=== PATIENT | female | born 1945 | race African-American/Black ===

== ENCOUNTER → 2016-11-28 | Outpatient (CLI) | payer MEDICARE, BC ==
--- NOTE | 2016-11-28 14:05 | RAD ---
Indication chronic shoulder pain. Internally and externally rotated views of the right shoulder as well as a Y view were obtained. There are mild degenerative changes at the AC joint. Significant glenohumeral degenerative changes not seen. No acute bony finding is apparent. IMPRESSION: No acute bony finding
== END | disposition home or self-care (01) ==
LOC: RAD 12:47
PROVIDERS: ATTEND Family Medicine
DX: M19.011 Primary osteoarthritis, right shoulder (principal)
CPT/HCPCS: 73030

== ENCOUNTER → 2018-02-19 | Outpatient (CLI) | payer MEDICARE ==
--- NOTE | 2018-02-19 15:29 | RAD ---
MR of the right shoulder Indication: Right shoulder pain after a fall. Technique: Standard multiplanar sequences are obtained. Findings: Artifact: Mild motion degradation. Acromioclavicular joint: Degenerative, with undersurface osteophytes. Rotator cuff: * Supraspinatus-infraspinatus tendon: Complete rupture of both tendons with severe retraction to the superior labrum measuring about 3.5 cm. * Subscapularis tendon: Partial tear * Muscle bulk: Severe fatty infiltration of the supraspinatus and infraspinatus muscles, less so at the subscapularis muscle * Subacromial subdeltoid bursa: Mild effusion. Fluid: Small glenohumeral effusion. Mild fluid in the subcoracoid bursa. Glenohumeral cartilage: Moderate chondromalacia. Labrum: Tear of the posterosuperior labrum. Biceps tendon: High-grade tear Bones: No lesion or acute fracture. Soft tissue: No acute findings. Impression: 1. Complete rupture of the supraspinatus and infraspinatus tendons, with retraction and severe fatty infiltration. Partial subscapularis tendon tear. 2. Posterosuperior labral tear. 3. High-grade biceps tendon tear. Electronically signed by: Neville Jordan MD (02/19/2018 3:25 PM) [facility]
== END | disposition home or self-care (01) ==
LOC: MRI 10:55
PROVIDERS: ATTEND Family Medicine
DX: S46.811A Strain of other muscles, fascia and tendons at shoulder and upper arm level, right arm, initial encounter (principal); M94.211 Chondromalacia, right shoulder; K76.0 Fatty (change of) liver, not elsewhere classified; W19.XXXA Unspecified fall, initial encounter; Y93.89 Activity, other specified; Y92.89 Other specified places as the place of occurrence of the external cause; Y99.8 Other external cause status
CPT/HCPCS: 73221

== ENCOUNTER → 2018-10-08 | Outpatient (CLI) | payer MEDICARE, BC ==
--- NOTE | 2018-10-08 17:18 | RAD ---
EXAM: Right tibia and fibula, 2 views. HISTORY: Pain. COMPARISON: None. FINDINGS: 2 views the right tibia and fibula are obtained. There is no fracture, dislocation or subluxation. There is no lytic or sclerotic osseous lesion. There is no periosteal reaction. There is medial compartment joint space narrowing and moderate medial and mild lateral compartment spurring of the right knee. There are multiple soft tissue calcifications stranding the knee and within the calf. There is a small plantar spur. There is slight enthesopathy at the Achilles tendon insertion. There is mild midfoot and hindfoot degenerative spurring. IMPRESSION: 1. No acute osseous finding. 2. Moderate medial compartment predominant osteoarthritis of the right knee and mild osteoarthritis involving the right mid and hindfoot. 3. Small plantar spur. Electronically signed by: Nichol Boo MD (10/08/2018 5:15 PM) [facility]
== END | disposition home or self-care (01) ==
LOC: RAD 12:45
PROVIDERS: ATTEND Family Medicine
DX: M19.071 Primary osteoarthritis, right ankle and foot (principal); M17.11 Unilateral primary osteoarthritis, right knee; M77.51 Other enthesopathy of right foot and ankle
CPT/HCPCS: 73590

== ENCOUNTER → 2018-10-28 | Outpatient (CLI) | payer MEDICARE, BC ==
[~2018-10-28] MED LIST: GADOBUTROL 10 MMOL/10 ML VIAL IV ONE
--- NOTE | 2018-10-28 13:01 | RAD ---
MR of the right tibia fibula with and without contrast HISTORY: Generalized pain and swelling at the right tibia and fibula. No specific location of swelling is worse anterolaterally. TECHNIQUE: Pre and postcontrast images are obtained. FINDINGS: There is generalized muscle atrophy. Mild subcutaneous edema fairly generalized. No concerning localized area of edema. No fluid collection is seen. No concerning contrast enhancement. Muscle tissue signal is intact. No bone lesion or acute fracture. No aggressive bone destruction. No periosteal reaction. The knee is barely visualized, demonstrating primary osteoarthritis in a joint effusion. There is a probable medial meniscal tear. Small ossicles or loose bodies are seen in the popliteus recess. Small Nix's cyst. IMPRESSION: 1. No significant findings at the tibiotalar fibula. 2. Limited knee visualization does demonstrate primary osteoarthritis and a probable medial meniscal tear. Electronically signed by: Neville Jordan MD (10/28/2018 12:58 PM) [facility]
== END | disposition home or self-care (01) ==
LOC: MRI 10:24
PROVIDERS: ATTEND Family Medicine
DX: M17.11 Unilateral primary osteoarthritis, right knee (principal); M71.21 Synovial cyst of popliteal space [Baker], right knee; M62.561 Muscle wasting and atrophy, not elsewhere classified, right lower leg
CPT/HCPCS: 73720; A9585

== ENCOUNTER 2019-06-02 10:43 | Emergency (ER) | payer MEDICARE, BC ==
[~2019-06-02] VITALS: Ht 157.5 cm; Wt 102.1 kg
[2019-06-02] MEDS ORDERED: PENI500T PO (11:36)
--- NOTE | 2019-06-02 11:36 | PHYS DOC ---
Past Medical History Past Medical History: High Cholesterol, Hypertension Alcohol Use: None Drug Use: None Adult General Chief Complaint Chief Complaint: ALLERGIC REACTION HPI HPI Patient is a 73 year old AA female accompanied by her , who presents to the ER with complaints of swelling to R lower jaw and R lateral lower lip for the last 2 days. Patient denies any new medications, foods, detergents, or environmental exposures. She denies any shortness of breath, wheezing, tongue swelling, or difficulty swallowing. Patient states she was seen by her dentist last month and denies having any dental caries at that time. Patient does report some right lower dental pain, she denies any ear pain, sore throat, cough, nausea, or vomiting. She currently rates her pain a 4/10 on the pain scale, the pain increases with palpation, there are no alleviating factors. All other ROS is neg unless otherwise noted in HPI. Review of Systems Review of Systems See Above Allergies Allergies Allergies Coded Allergies Type Severity Reaction Last Updated Verified No Known Drug Allergies 10/28/18 No Physical Exam Physical Exam See Above Constitutional: Well developed, well nourished, no acute distress, non-toxic appearance. [] HENT: Normocephalic, atraumatic, bilateral external ears normal, oropharynx moist, no oral exudates, nose normal; R lower facial swelling with edema and erythema of right lower gingiva, right front bottom tooth tender to palpation, no visible abscess. [] Eyes: PERRLA, EOMI, conjunctiva normal, no discharge. [] Neck: Normal range of motion, no tenderness, supple, no stridor. [] Cardiovascular:Heart rate regular rhythm, no murmur [] Lungs & Thorax: Bilateral breath sounds clear to auscultation [] Skin: Warm, dry, no erythema, no rash. [] Extremities: No cyanosis, ROM intact Neurologic: Alert and oriented X 3, no focal deficits noted. [] Psychologic: Affect normal, judgement normal, mood normal. [] Current Patient Data Vital Signs Vital Signs Date Time Temp Pulse Resp B/P (MAP) Pulse Ox O2 Delivery O2 Flow Rate FiO2 06/02/19 11:41 58 183/82 (115) 96 Room Air 06/02/19 11:08 98.3 18 98.3 EKG EKG [] Radiology/Procedures Radiology/Procedures [] Course & Med Decision Making Course & Med Decision Making Pertinent Labs and Imaging studies reviewed. (See chart for details) [] Dragon Disclaimer Dragon Disclaimer This electronic medical record was generated, in whole or in part, using a voice recognition dictation system. Departure Departure Impression: Primary Impression: Infected dental caries Disposition: 01 HOME, SELF-CARE Condition: STABLE Referrals: MARILEE PAL MD (PCP) Patient Instructions: Dental Caries Additional Instructions: Fill the prescription and take as directed. He will take Tylenol or ibuprofen as needed for pain. Follow-up with your dentist next week. Return to the ER if symptoms worsen. Scripts Penicillin V Potassium (PENICILLIN V POTASSIUM) 500 Mg Tablet 1 TAB PO QID for 10 Days, #40 TAB 0 Refills Prov: CADE HAYWOOD APRN 06/02/19 CADE HAYWOOD APRN Jun 02, 2019 11:36
[2019-06-02 11:41] VITALS: BP 183/82
== END 2019-06-02 11:51 | disposition home or self-care (01) ==
LOC: ER 10:43
DX: K04.7 Periapical abscess without sinus (principal); I10 Essential (primary) hypertension; E78.00 Pure hypercholesterolemia, unspecified
CPT/HCPCS: 99283

== ENCOUNTER → 2021-05-03 | Day surgery (SDC) | payer MEDICARE, BC ==
[~2021-05-03] VITALS: Ht 160 cm; Wt 100.0 kg
[~2021-05-03] MED LIST changes: +ALLO100T PO; +ASPI-886 PO; +CALC500T54 PO; +DILT240C33 PO; -GADOBUTROL 10 MMOL/10 ML VIAL IV ONE; +OXYB5TAB10 PO; +PENI500T PO; +PROPOFOL 10 MG/ML (20ML) VIAL. IV ONE; +SIMV40TA18 PO; +TRIA1TAB5 PO
[2021-05-03 11:09] VITALS: BP 151/67
[2021-05-03 12:18] VITALS: BP 139/63
--- NOTE | 2021-05-04 18:22 | PATHOLOGY ---
[facility] Accession Number: [id number] . 01 Material submitted: . rectum - RECTAL POLYP BIOPSY . 01 Clinical history: . SCREENING COLONOSCOPY . 02 Diagnosis: Colorectal biopsy, rectal polyp: - Hyperplastic polyp. . ([facility] ER:mm; 05/04/2021) [facility] 05/04/2021 1219 Local . 02 Comment: There are no adenomatous changes or evidence of malignancy. . ([facility] ER:mml; 05/04/2021) . 02 Electronically signed: . Justice Bartholomew MD, Pathologist NPI- [id number] . 01 Gross description: . The specimen is received in formalin, labeled "Alfredo, Sheri, rectal polyp biopsy". Received is a single segment of pale lambert tissue measuring 0.3 cm in maximum dimensions. The specimen is submitted entirely in cassette A1. ([facility]; 05/03/2021) NRI/NRI 05/03/2021 1752 Local . 02 Pathologist provided ICD-10: K62.1 . 02 CPT . 340068 Specimen Comment: A courtesy copy of this report has been sent to [phone], [phone] Specimen Comment: [id number] Specimen Comment: Report sent to / DR PAL Specimen Comment: A duplicate report has been generated due to demographic updates. Performed at: 01 [facility] [address], [place] [id number] MD Vinh Ferrari MD Phone: [phone] Performed at: 02 [facility] [address] [place], [place] [id number] MD Justice Bartholomew MD Phone: [phone]
== END | disposition home or self-care (01) ==
LOC: ENDOS 10:35
PROVIDERS: ATTEND Internal Medicine Gastroenterology
DX: Z12.11 Encounter for screening for malignant neoplasm of colon (principal); K62.1 Rectal polyp; K63.89 Other specified diseases of intestine; K64.0 First degree hemorrhoids; K57.30 Diverticulosis of large intestine without perforation or abscess without bleeding; I10 Essential (primary) hypertension; E78.00 Pure hypercholesterolemia, unspecified; M10.9 Gout, unspecified; F41.9 Anxiety disorder, unspecified; Z79.82 Long term (current) use of aspirin; Z79.899 Other long term (current) drug therapy; Z90.710 Acquired absence of both cervix and uterus; Z98.890 Other specified postprocedural states
CPT/HCPCS: 45380; J2704; 88305